=== PATIENT | female | born 2005 | race Hispanic/Latino ===

== ENCOUNTER 2024-02-18 01:21 | Emergency (ER) | payer MEDICAID ==
[~2024-02-18] VITALS: Ht 154.9 cm; Wt 67.8 kg
[2024-02-18 01:44] LABS: APPEARANCE,URINE TURBID (CLEAR); BILIRUBIN,URINE NEGATIVE (NEGATIVE); COLOR,URINE BROWN (YELLOW); GLUCOSE, URINE (UA) NEGATIVE (NEGATIVE); KETONES,URINE NEGATIVE (NEGATIVE); LEUKOCYTE ESTERASE ,URINE 500 Leu/uL (NEGATIVE); NITRATE,URINE NEGATIVE (NEGATIVE); OCCULT BLOOD,URINE LARGE (NEGATIVE); PH,URINE 5.5 (5.0-8.0); PROTEIN,URINE 50 mg/dL (NEGATIVE); UROBILINOGEN,URINE 0.2 mg/dL (0.2-1.0)
[2024-02-18 01:48] LABS: ADD UA MICROSCOPIC YES
[2024-02-18 01:49] LABS: BACTERIA,URINE MOD /HPF (None Seen); NON-SQUAMOUS EPITHELIAL CELL 1 /HPF (0-2); RBC,URINE TNTC /HPF (0-1); SQUAMOUS EPITHELIAL CELL,UR MOD /HPF (0-2); UNCLASSIFIED CRYSTAL 5 /HPF (None Seen); WBC CLUMP MANY /HPF (0-1); WBC,URINE TNTC /HPF (0-1); YEAST,URINE BUDDING MANY /HPF (None Seen)
[2024-02-18 01:53] LABS: BASOPHILS # (AUTO) 0.05 K/uL (0.00-0.20); BASOPHILS % (AUTO) 0.5 % (0.0-5.0); EOSINOPHILS # (AUTO) 0.33 K/uL (0.00-0.70); EOSINOPHILS % (AUTO) 3.5 % (0.0-8.0); HEMATOCRIT 36.2 % (36-48); IMMATURE GRANULOCYTE ABSOLUTE 0.03 K/uL (0-1); LYMPHOCYTES # (AUTO) 2.6 K/uL (1.0-4.8); LYMPHOCYTES % (AUTO) 27.5 % (21.0-51.0); MEAN CORPUSCULAR HEMOGLOBIN 22.3 pg (27.0-33.0); MEAN CORPUSCULAR HGB CONC 29.8 g/dL (32.0-36.0); MEAN CORPUSCULAR VOLUME 74.6 fL (80-100); MONOCYTES # (AUTO) 0.7 K/uL (0.1-1.0); MONOCYTES % (AUTO) 7.7 % (3.0-13.0); NEUTROPHILS # (AUTO) 5.7 K/uL (1.8-7.7); NEUTROPHILS % (AUTO) 60.5 % (40.0-77.0); PLATELET COUNT (AUTO) 472 K/uL (130-400); RED BLOOD CELL COUNT(AUTO) 4.85 MIL/uL (4.00-5.50); RED CELL DISTRIBUTION WIDTH 23.1 % (11.0-15.5); WHITE BLOOD COUNT (AUTO) 9.5 K/uL (4.8-10.8)
[2024-02-18 02:01] LABS: CREATININE 0.7 mg/dL (0.5-1.0); POTASSIUM 4.1 mmol/L (3.5-5.1)
[2024-02-18] MEDS: morPHINE 4 MG SYG IVP ONE (02:06)
[2024-02-18] MEDS: CLINDAMYCIN 150 MG CAP PO ONE (02:06)
--- NOTE | 2024-02-18 02:25 | ERN ---
General Chief Complaint: Post-Op Problem Stated Complaint: PAIN TO SX SITE, ON 02/13/24 Time Seen by MD: 01:38 History of Present Illness Initial Comments Mrs Russlel is 18-year-old female significant past medical history for recent delivery on 02/13/2024 who presents today with a chief complaint of abdominal discomfort near her scar. Patient reports that she had a done on the and did not receive any pain medicine. Patient reports that since then she has been having increased pain and discomfort. Patient denies any redness. Patient denies any fever. Allergies: Coded Allergies: No Known Drug Allergies (Unverified Allergy, Unknown, 02/18/24) Past Medical History Past Medical History: No Pertinent History Past Surgical History: Surgical History Other: X2 ROS Dictation Constitutional: Negative for fever,chills, and weight loss Eyes: Negative for injury, pain,redness, and discharge ENT: Negative for injury,pain or swelling Cardiovascular: Negative for chest pain, palpitations, and edema Respiratory: Negative for shortness of breath, cough, and wheezing, Abdomen/GI: Positive for abdominal pain Back: Negative for injury and pain : Negative for injury, bleeding and discharge MS/Extremity: Negative for injury and deformity Skin: Negative for rash, and discoloration Neuro: Negative for headache, weakness, numbness, tingling, and seizure Psych: Negative for suicide ideation, homicidal ideation, and hallucinations Physical Exam Physical Exam Dictation General: awake, alert, NAD Head/Face: Normocephalic, atraumatic Eyes: PERRL, EOMI, vision at baseline ENT: oral cavity clear Neck: Trachea midline, supple, Cardiovascular: RRR, normal S1/S2, No MRGs, no JVD Respiratory: CTAB, no respiratory distress, No rales or wheezes Abdomen: Linear scar in his suprapubic area with no evidence of redness or discharge Skin: Warm, dry, normal turgor, no rash MS/Extremity: Pulses equal, no cyanosis, neurovascular intact, FROM Neuro: COAx4 Results Laboratory and Microbiology Lab and Micro Result Laboratory Tests Test 02/18/24 01:33 02/18/24 01:44 Urine Color BROWN (YELLOW) Urine Appearance TURBID (CLEAR) Urine pH 5.5 (5.0-8.0) Urine Specific [place] 1.014 (1.001-1.031) Urine Protein 50 mg/dL (NEGATIVE) H Urine Glucose (UA) NEGATIVE mg/dL (NEGATIVE) Urine Ketones NEGATIVE mg/dL (NEGATIVE) Urine Occult Blood LARGE (NEGATIVE) H Urine Nitrate NEGATIVE (NEGATIVE) Urine Bilirubin NEGATIVE mg/dL (NEGATIVE) Urine Urobilinogen 0.2 mg/dL (0.2-1.0) Urine Leukocyte Esterase 500 Simin/uL (NEGATIVE) H Urine RBC TNTC /HPF (0-1) H Urine WBC TNTC /HPF (0-1) H Urine WBC Clumps (Auto) MANY /HPF (0-1) Urine Squamous Epithelial Cells MOD /HPF (0-2) Urine Non-Squamous Epithelial Cells 1 /HPF (0-2) Urine Other Crystals (Auto) 5 /HPF (None Seen) Urine Bacteria MOD /HPF (None Seen) Urine Yeast MANY /HPF (None Seen) White Blood Count 9.5 K/uL (4.8-10.8) Red Blood Count 4.85 MIL/uL (4.00-5.50) Hemoglobin 10.8 g/dL (12.0-16.0) L Hematocrit 36.2 % (36-48) Mean Corpuscular Volume 74.6 fL (80-100) L Mean Corpuscular Hemoglobin 22.3 pg (27.0-33.0) L Mean Corpuscular Hemoglobin Concent 29.8 g/dL (32.0-36.0) L Red Cell Distribution Width 23.1 % (11.0-15.5) H Platelet Count 472 K/uL (130-400) H Mean Platelet Volume 9.8 fL (7.5-10.5) Immature Granulocyte % (Auto) 0.3 % (0-1) Neutrophils (%) (Auto) 60.5 % (40.0-77.0) Lymphocytes (%) (Auto) 27.5 % (21.0-51.0) Monocytes (%) (Auto) 7.7 % (3.0-13.0) Eosinophils (%) (Auto) 3.5 % (0.0-8.0) Basophils (%) (Auto) 0.5 % (0.0-5.0) Neutrophils # (Auto) 5.7 K/uL (1.8-7.7) Lymphocytes # (Auto) 2.6 K/uL (1.0-4.8) Monocytes # (Auto) 0.7 K/uL (0.1-1.0) Eosinophils # (Auto) 0.33 K/uL (0.00-0.70) Basophils # (Auto) 0.05 K/uL (0.00-0.20) Absolute Immature Granulocyte (auto 0.03 K/uL (0-1) Nucleated Red Blood Cells 0.0 % (0.0-0.19) Red Blood Cell Morphology See comments Sodium Level 140 mmol/L (136-145) Potassium Level 4.1 mmol/L (3.5-5.1) Chloride Level 104 mmol/L (101-111) Carbon Dioxide Level 30 mmol/L (21-32) Blood Urea Nitrogen 16 mg/dL (7-18) Creatinine 0.7 mg/dL (0.5-1.0) Glomerular Filtration Rate Calc 127 mL/min (>90) Random Glucose 89 mg/dL (70-105) Total Calcium 9.2 mg/dL (8.5-10.1) MDM Patient did have an ultrasound which does not show any free fluid/ abdominal wall or subcutaneous abnormalities Patient will be given antibiotics and pain medicine to take home with. Patient advised to follow up with the primary care physician/partition notcher MDM: Differential diagnosis: Pelvic pain Rationale: Tests considered and ordered secondary to shared decision making include: Previous outside records reviewed: Old ER visits. Risk of complication and/or morbidity or mortality of patient management: None Medications-Per medication reconciliation Need for hospitalization: Patient does not meet criteria for hospitalization. Need for emergency major/minor surgery: No There are no social concerns with this patient. Prescription drug management Prescriptions will include symptomatic care Patient's prior external medical records from other ER visits were reviewed by me as indicated. Prior testing and results from previous visits were reviewed. Prior tests were taken into account with medical decision making and resource utilization, independent historian/historians were used to obtain complete medical history. I independently interpreted the test that were performed, results were reviewed by me and considered findings on radiology if ordered. Medical management and examination interpretation discussions were had by me with other qualified healthcare professionals as indicated for the patient's care. ED Course Orders Procedure Category Date Status Time Urinalysis Profile LAB 02/18/24 Complete 01:35 Cbc With Differential LAB 02/18/24 Complete 01:35 Basic Metabolic Panel LAB 02/18/24 Complete 01:35 Culture Urine COLLEEN 02/18/24 In Process 01:48 Morphine 4mg Syg PHA 02/18/24 Complete (Morphine 4mg Syg) 02:00 Clindamycin 150mg Cap PHA 02/18/24 Complete (Cleocin 150mg Cap 02:00 Us Pelvic Non-Ob Comp US 02/18/24 Taken 01:48 Current Medications Medications (Trade) Dose Ordered Sig/Georges Route PRN Reason Start Time Stop Time Status Last Admin Dose Admin Clindamycin HCl (Cleocin 150mg Cap) 150 mg ONCE ONCE PO 02/18/24 02:00 02/18/24 02:01 DC 02/18/24 02:06 Morphine Sulfate (morPHINE 4MG SYG) 4 mg ONCE ONCE IVP 02/18/24 02:00 02/18/24 02:01 DC 02/18/24 02:06 Vital Signs Date Time Temp Pulse Resp B/P (MAP) Pulse Ox O2 Delivery O2 Flow Rate FiO2 02/18/24 01:52 97.9 91 20 112/80 98 Room Air* 0 21 02/18/24 01:24 99.1 111 18 131/92 97 Room Air 0 DX & DISP Disposition: Discharge Departure Impression: Primary Impression: Postop check Condition: Stable Scripts Clindamycin HCl (Clindamycin HCl) 150 Mg Capsule 1 CAP PO TID for 10 Days, #30 CAP 0 Refills Prov: ANGEL VALDEZ MD 02/18/24 Additional Instructions: Please follow up with your primary care physician/partition notcher for continuance of care of your postop wound. Please take antibiotics as prescribed. Please take Tylenol and ibuprofen every 6 hours in alternating fashion for pain. ANGEL VALDEZ MD Feb 18, 2024 02:25
[2024-02-18] MEDS ORDERED: CLIN-116 PO (03:21)
[2024-02-18] MEDS ORDERED: SULF1TAB42 PO (03:27)
[2024-02-18 04:08] VITALS: BP 108/78; PULSE 89; RESP 18; TEMP 98.3; O2SAT 99
[2024-02-18] MEDS: cefTRIAXone 1G VIAL IVPB ONE (04:10)
--- NOTE | 2024-02-18 08:30 | HMCIMG ---
US PELVIC NON-OB COMP REASON: Abdominal Pain COMPARISON: None TECHNIQUE: Transvaginal pelvic sonogram was performed. FINDINGS: Uterus is 14.2 x 6.9 x 9.0 cm. Endometrium is 1.22 mm, mildly heterogeneous but without the evidence of retained products of conception. There are no focal uterine masses. Ovaries are not separately identified. There are no visible adnexal masses or cysts. There is no free fluid in the cul-de-sac. The incision appears unremarkable without focal fluid collection. IMPRESSION: 1. Prominent uterus consistent with state 2. No sonographic evidence of complication.
== END 2024-02-18 04:12 | disposition home or self-care (01) ==
LOC: EDH 01:21
DX: R10.9 Unspecified abdominal pain (principal)
CPT/HCPCS: 99285; 96374; 76856; 96375; 80048; 85025; 87086 ×2; 87186; 81001; 36415; J0696; J2270

== ENCOUNTER 2024-10-15 12:32 | Emergency (ER) | payer MEDICAID ==
[~2024-10-15] VITALS: Ht 154.9 cm; Wt 79.4 kg
[~2024-10-15 12:32] MED LIST: SULF1TAB42 PO
--- NOTE | 2024-10-15 12:38 | ERN ---
ED Note History of Present Illness Stated Complaint: VAGINAL BLEEDING Chief Complaint: Vaginal Bleeding Time Seen by MD: 12:35 Dictation: PATIENT IS A 18-YEAR-OLD FEMALE COMING IN TODAY WITH COMPLAINTS OF PAINLESS VAGINAL BLEEDING ONSET YESTERDAY. SHE STATES SHE IS HOWEVER IS UNKNOWN ESTIMATED DATE OF CONFINEMENT. , HAD A POSITIVE TEST AT [facility] SEVERAL DAYS AGO. WAS TOLD TO GO TO THE EMERGENCY ROOM IF SHE HAD ANY VAGINAL BLEEDING. Allergies: Coded Allergies: No Known Drug Allergies (Unverified Allergy, Unknown, 02/18/24) Home Meds Active Scripts Sulfamethoxazole/Trimethoprim (Bactrim Ds Tablet) 800 Mg-160 Mg Tablet, 1 TAB PO BID for 10 Days, #20 TAB 0 Refills Prov:ANGEL VALDEZ MD 02/18/24 Past Medical History Past Medical History: No Pertinent History Surgical History: Surgical History Other: X2 : 3 Para: 2 Aborts: 0 RN Note Reviewed/Agreed w/PFSH: Yes Review of System Dictation CONSTITUTIONAL: NEGATIVE EXCEPT FOR HPI HEAD/FACE: NEGATIVE EXCEPT FOR HPI EENT: NEGATIVE EXCEPT FOR HPI RESPIRATORY: NEGATIVE EXCEPT FOR HPI GASTROINTESTINAL/ABDOMINAL: NEGATIVE EXCEPT FOR HPI GENITOURINARY: NEGATIVE EXCEPT FOR HPI PAINLESS VAGINAL BLEEDING MUSCULOSKELETAL: NEGATIVE EXCEPT FOR HPI INTEGUMENTARY: NEGATIVE EXCEPT FOR HPI NEUROLOGICAL/PSYCH: NEGATIVE EXCEPT FOR HPI HEMATOLOGIC/LYMPHATIC: NEGATIVE EXCEPT FOR HPI ALL SYSTEMS NEGATIVE, EXCEPT NOTED ABOVE. 13 POINT REVIEW OF SYSTEMS ASSESSED AND ALL NEGATIVE EXCEPT FOR ABOVE. Initial Vital Sign VS Vital Signs Date Time Temp Pulse Resp B/P (MAP) Pulse Ox O2 Delivery O2 Flow Rate FiO2 10/15/24 12:46 98.8 111 16 109/72 99 Room Air 0 10/15/24 12:50 21 Physical Exam Dictation VITAL SIGNS REVIEWED GENERAL APPEARANCE: ALERT, ORIENTED X 3, NO ACUTE DISTRESS, WELL DEVELOPED, NOURISHED. HEAD AND FACE: NON-TRAUMATIC. EYES: PERRL, PINK CONJUNCTIVAS, EYELID NO TRAUMA, ANTERIOR CHAMBER WITH ARCUS SENILIS. EARS: PINNAS INTACT AND NO SIGNS OF TRAUMA OR ERYTHEMA EAR CANALS CLEAR AND NO DISCHARGE TM NO ERYTHEMA NOSE: NO DISCHARGE, NO BLEEDING. OROPHARYNX: MOUTH NORMAL, TONGUE PINK, PHARYNX CLEAR,NO ERYTHEMA, TONSILS NO EXUDATES, NO ABSCESSES NOTED, MUCOUS MEMBRANE MOIST NECK: SUPPLE, NON-TENDER, NO THYROMEGALY, NO MASSES, NO JVD, NO BRUITS BREAST:DEFERRED CHEST:NO TENDERNESS, NO CREPITUS, NO PARADOXICAL MOVEMENT, NO RETRACTIONS LUNGS:CLEAR, WELL-VENTILATED, SYMMETRIC, NO RALES, NO WHEEZING, NO RHONCHI, NO STRIDOR, GOOD BREATH SOUNDS BILATERALLY HEART: REGULAR RATE, REGULAR RHYTHM, NO MURMUR, NO GALLOPS VASCULAR: NO PERIPHERAL EDEMA, ABDOMEN: SOFT, POSITIVE BOWEL SOUNDS, NONDISTENDED, NO GUARDING, NONTENDER, NO REBOUND, NO MASSES NO HEPATOMEGALY, NO SPLENOMEGALY, NO SANTAMARIA'S SIGN, NO HERNIAS. RECTAL: DEFERRED GENITAL: DEFERRED NEUROLOGICAL: NORMAL SPEECH, MOTOR FUNCTION INTACT, SENSORY FUNCTION INTACT MUSCULOSKELETAL: NECK NONTENDER, FULL RANGE OF MOTION, BACK NONTENDER, FULL RANGE OF MOTION, EXTREMITIES: NONTENDER, FULL RANGE OF MOTION SKIN: COLOR PINK, DRY, NO TURGOR, NO RASH, NO LACERATIONS, NO ABRASIONS, NO CONTUSIONS. LYMPHATIC: DEFERRED Results (Laboratory/Radiology) Laboratory/Radiology Laboratory Tests Test 10/15/24 12:50 White Blood Count 7.9 K/uL (4.8-10.8) Red Blood Count 4.80 MIL/uL (4.00-5.50) Hemoglobin 12.7 g/dL (12.0-16.0) Hematocrit 38.5 % (36-48) Mean Corpuscular Volume 80.2 fL (80-100) Mean Corpuscular Hemoglobin 26.5 pg (27.0-33.0) L Mean Corpuscular Hemoglobin Concent 33.0 g/dL (32.0-36.0) Red Cell Distribution Width 15.9 % (11.0-15.5) H Platelet Count 487 K/uL (130-400) H Mean Platelet Volume 9.7 fL (7.5-10.5) Immature Granulocyte % (Auto) 0.3 % (0-1) Neutrophils (%) (Auto) 55.8 % (40.0-77.0) Lymphocytes (%) (Auto) 31.2 % (21.0-51.0) Monocytes (%) (Auto) 8.2 % (3.0-13.0) Eosinophils (%) (Auto) 3.5 % (0.0-8.0) Basophils (%) (Auto) 1.0 % (0.0-5.0) Neutrophils # (Auto) 4.4 K/uL (1.8-7.7) Lymphocytes # (Auto) 2.5 K/uL (1.0-4.8) Monocytes # (Auto) 0.7 K/uL (0.1-1.0) Eosinophils # (Auto) 0.28 K/uL (0.00-0.70) Basophils # (Auto) 0.08 K/uL (0.00-0.20) Absolute Immature Granulocyte (auto 0.02 K/uL (0-1) Nucleated Red Blood Cells 0.0 % (0.0-0.19) Sodium Level 138 mmol/L (136-145) Potassium Level 4.2 mmol/L (3.5-5.1) Chloride Level 104 mmol/L (101-111) Carbon Dioxide Level 27 mmol/L (21-32) Blood Urea Nitrogen 11 mg/dL (7-18) Creatinine 0.5 mg/dL (0.5-1.0) Glomerular Filtration Rate Calc 138 mL/min (>90) Random Glucose 97 mg/dL (70-105) Total Calcium 9.1 mg/dL (8.5-10.1) Human Chorionic Gonadotropin, Quant 45 mIU/mL (0-5) H 1345/OB ULTRASOUND DEMONSTRATES NO IUP AT THIS TIME, NO SAC. HCG IS 4 Labs Reviewed?: Yes ED Course ED Course Orders Procedure Category Date Status Time Cbc With Differential LAB 10/15/24 Complete 12:36 Hcg,Quantitative LAB 10/15/24 Complete 12:36 Us Ob <14 Weeks US 10/15/24 Taken 12:36 Type And Screen BBK 10/15/24 Complete 12:36 Basic Metabolic Panel LAB 10/15/24 Complete 12:36 Vital Signs Date Time Temp Pulse Resp B/P (MAP) Pulse Ox O2 Delivery O2 Flow Rate FiO2 10/15/24 14:18 98.8 111 16 121/75 99 Room Air* 0 10/15/24 12:50 98.8 111 16 109/72 99 Room Air* 0 21 10/15/24 12:46 98.8 111 16 109/72 99 Room Air 0 Medical Decision Making MDM MEDICAL DECISION-MAKING BASED ON BASIC LABS FOR EARLY TO INCLUDE INCLUDE QUANTITATIVE HCG AND ULTRASOUND HCG IS 45, ULTRASOUND DEMONSTRATES NO IUP, NO SAC. DX & DISP Disposition: Discharge Departure Impression: Primary Impression: Late menses Condition: Stable Additional Instructions: FOLLOW-UP WITH PRIMARY CARE PROVIDER IN 1 TO 2 DAYS. TAKE MEDICATIONS DIRECTED HERE IN THE EMERGENCY ROOM. OKAY TO CONTINUE HOME MEDICATIONS UNLESS OTHERWISE DISCUSSED DURING YOUR VISIT IN THE EMERGENCY ROOM TODAY. RETURN TO YOUR NEAREST EMERGENCY ROOM IF SYMPTOMS WORSEN OR IF THERE IS NO IMPROVEMENT. CALL 911 IF YOU NEED IMMEDIATE ASSISTANCE. TAKE TYLENOL [id number] NEEDED AND IF NO CONTRAINDICATIONS ARE PRESENT. INCREASE ORAL HYDRATION. A WOUND CULTURE OR URINE CULTURE WAS ORDERED HERE IN THE EMERGENCY ROOM DEPARTMENT PLEASE FOLLOW-UP WITH PRIMARY CARE PROVIDER AND ADVISE THEM TO GET REPEAT PORTS FROM OUR FACILITY. IF YOU HAD ANY ERLIN WRAP/SPLINTS THAT WERE APPLIED HERE, PLEASE DO NOT REMOVE THEM UNTIL YOU SEE YOUR PRIMARY CARE OR SPECIALTY. DIET AND ACTIVITY TOLERATED, FOLLOW UP WITH THE YOUR ELECTRIC PLATER DOCTOR NEEDED. Referrals: JUAREZ HAWLEY (PCP) Time of Disposition: 13:48 I have reviewed the case, and I agree with, Diagnosis and Plan CAMDEN MILES NP Oct 15, 2024 12:38 AUBREY CRUZ DO Oct 15, 2024 14:25
[2024-10-15 13:07] LABS: IMMATURE GRANULOCYTE ABSOLUTE 0.02 K/uL (0-1); NUCLEATED RED BLOOD CELLS 0.0 % (0.0-0.19); PLATELET COUNT (AUTO) 487 K/uL (130-400); RED BLOOD CELL COUNT(AUTO) 4.80 MIL/uL (4.00-5.50); RED CELL DISTRIBUTION WIDTH 15.9 % (11.0-15.5); WHITE BLOOD COUNT (AUTO) 7.9 K/uL (4.8-10.8)
[2024-10-15 13:20] LABS: CREATININE 0.5 mg/dL (0.5-1.0); GLOMERULAR FILTR. RATE CALC 138.0 mL/min (>90); GLUCOSE,RANDOM 97.0 mg/dL (70-105); SODIUM SERUM 138.0 mmol/L (136-145); UREA NITROGEN, BLOOD 11.0 mg/dL (7-18)
[2024-10-15 13:31] LABS: HCG,QUANTITATIVE 45.0 mIU/mL (0-5)
[2024-10-15 14:18] VITALS: BP 121/75; PULSE 111; RESP 16; TEMP 98.8; O2SAT 99
--- NOTE | 2024-10-15 14:47 | HMCIMG ---
EXAM: US Obstetrical, Complete <14 weeks CLINICAL HISTORY: vag bleeding quant 45 TECHNIQUE: Transabdominal imaging of the maternal pelvis and a <14 week gestation with image documentation. COMPARISON: None provided. FINDINGS: The uterus is anteverted, and measures 7.5 x 3.6 x 5.8 cm. The endometrial stripe measures 1.1 cm. There is no intrauterine or products of conception visualized. The cervix is closed. The right ovary measures 2.7 x 1.3 x 2.9 cm, and the left ovary measures 1.8 x 2.0 x 1.8 cm. Ovarian blood flow is documented bilaterally. There is no free fluid within the pelvis. IMPRESSION: There is no intrauterine or products of conception identified on the current examination. Recommend correlation with quantitative beta-hCG, and follow-up ultrasound imaging. /[place]
== END 2024-10-15 14:19 | disposition home or self-care (01) ==
LOC: EDH 12:32
DX: N91.0 Primary amenorrhea (principal); R10.2 Pelvic and perineal pain; Z79.899 Other long term (current) drug therapy
CPT/HCPCS: 36415; 76801; 80048; 84702; 85025; 86850; 86900; 86901; 99284